=== PATIENT | male | born 1995 | race Caucasian/White ===

== ENCOUNTER 2022-01-04 22:17 | Emergency (ER) | payer OTHER ==
[~2022-01-04] VITALS: Ht 175.3 cm; Wt 78.0 kg
[2022-01-05 01:15] VITALS: BP 123/65
== END 2022-01-05 01:20 | disposition home or self-care (01) ==
LOC: ER 22:17
DX: T40.711A Poisoning by cannabis, accidental (unintentional), initial encounter (principal); J45.909 Unspecified asthma, uncomplicated; F10.129 Alcohol abuse with intoxication, unspecified; Y90.9 Presence of alcohol in blood, level not specified; Y92.018 Other place in single-family (private) house as the place of occurrence of the external cause
CPT/HCPCS: 99281